=== PATIENT | male | born 1990 | race Caucasian/White ===

== ENCOUNTER 2018-01-17 20:38 | Observation (INO) | payer BC ==
[2018-01-17] MEDS ORDERED: HYDROmorphone 1 MG/ML 1 ML SYRINGE IVP STA ×2 (21:19→22:36)
--- NOTE | 2018-01-17 21:24 | ED ---
Abdominal Pain HPI <ShivamevelynNic - Last Filed: 01/17/18 22:37> - General Source: patient, EMS Mode of arrival: EMS Limitations: no limitations <Prema Gutiérrez - Last Filed: 01/18/18 03:42> - General Chief Complaint: Abdominal Pain Stated Complaint: Abdominal Pain Time Seen by Provider: 01/17/18 21:08 - History of Present Illness Initial Comments: 27-year-old male patient presents the emergency department today for transfer from [facility] for right lower quadrant abdominal pain and possible appendicitis. Patient states that he has been having right lower quadrant abdominal pain for the last 3 days. Patient states that the pain has been gradually worsening. Patient states that today he was unable to move without significant pain. Patient states he has been having some loose bowel movements with presence of red blood. Patient states he has had no appetite and has been nauseated. Has not vomited. Patient denies any fevers or chills. States he is urinating without difficulty. Patient has had cholecystectomy in the past but does still have his appendix. Patient is treated for chronic neck and back pain. Patient denies any recent rash, shortness breath, chest pain, back pain, numbness, tingling, dizziness, weakness, hematuria, dysuria, urinary urgency, urinary frequency, headache, visual changes, or any other complaints. (Prema Gutiérrez) - Related Data Home Medications Medication Instructions Recorded Confirmed Atorvastatin [Lipitor] 10 mg PO DAILY 01/17/18 01/17/18 Cholecalciferol [Vitamin D3] 1,000 unit PO DAILY 01/17/18 01/17/18 Cyanocobalamin [Vitamin B-12] 500 mcg PO DAILY 01/17/18 01/17/18 DULoxetine HCL [Cymbalta] 60 mg PO DAILY 01/17/18 01/17/18 Multivitamins, Thera [Multivitamin 1 tab PO DAILY 01/17/18 01/17/18 (formulary)] Niacin [Niacin ER] 500 mg PO DAILY 01/17/18 01/17/18 Pregabalin [Lyrica] 100 mg PO TID 01/17/18 01/17/18 tiZANidine [Zanaflex] 4 mg PO TID 01/17/18 01/17/18 Allergies Allergy/AdvReac Type Severity Reaction Status Date / Time morphine Allergy Severe cardiac Verified 01/18/18 01:44 arrest amoxicillin trihydrate Allergy Rash/Hives Verified 01/18/18 01:44 [From Trimox] Penicillins Allergy Rash/Hives Verified 01/18/18 01:44 Review of Systems ROS Other: All systems not noted in ROS Statement are negative. <Nic Whitaker - Last Filed: 01/17/18 22:37> ROS Other: All systems not noted in ROS Statement are negative. <BrockPrema Tay - Last Filed: 01/18/18 03:42> ROS Statement: Those systems with pertinent positive or pertinent negative responses have been documented in the HPI. Past Medical History Past Medical History: GERD/Reflux Additional Past Medical History / Comment(s): ABDOMINAL PAIN History of Any Multi-Drug Resistant Organisms: None Reported Past Surgical History: Cholecystectomy, Orthopedic Surgery Additional Past Surgical History / Comment(s): COLONOSCOPY, EGD, R ankle surgery , carpal devika right hand, Past Anesthesia/Blood Transfusion Reactions: No Reported Reaction Past Psychological History: No Psychological Hx Reported Smoking Status: Current every day smoker Past Alcohol Use History: None Reported Past Drug Use History: None Reported <Prema Gutiérrez - Last Filed: 01/18/18 03:42> General Exam Limitations: no limitations General appearance: alert, in no apparent distress, other (This is a well- developed, well-nourished adult male patient in no acute distress. Vital signs upon presentation To 96.7F, pulse 71, respirations 18, blood pressure 134/71, pulse ox 97% on room air.) Eye exam: Present: normal appearance, PERRL, EOMI. Absent: scleral icterus, conjunctival injection, periorbital swelling ENT exam: Present: normal exam, normal oropharynx, mucous membranes moist Respiratory exam: Present: normal lung sounds bilaterally. Absent: respiratory distress, wheezes, rales, rhonchi, stridor Cardiovascular Exam: Present: regular rate, normal rhythm, normal heart sounds. Absent: systolic murmur, diastolic murmur, rubs, gallop, clicks GI/Abdominal exam: Present: soft, tenderness (Right upper quadrant, right lower quadrant, superpubic tenderness.), guarding, normal bowel sounds. Absent: distended, rebound, rigid Neurological exam: Present: alert, oriented X3, CN II-XII intact Psychiatric exam: Present: normal affect, normal mood Skin exam: Present: warm, dry, intact, normal color. Absent: rash <Prema Gutiérrez - Last Filed: 01/18/18 03:42> Vital Signs 01/17/18 20:44 Temperature 96.7 F L Pulse Rate 71 Respiratory 18 Rate Blood Pressure 134/71 O2 Sat by Pulse 97 Oximetry Medical Decision Making <Nic Whitaker - Last Filed: 01/17/18 22:37> <Prema Gutiérrez - Last Filed: 01/18/18 03:42> - Medical Decision Making I saw this patient in conjunction with the nurse practitioner. I performed independent history and physical exam. Agree with case management. (Nic Whitaker) 27 year-old male patient presented to the emergency department at [place] for evaluation of right lower quadrant abdominal pain 3 days. Patient was transferred to our facility for further evaluation. Computed tomography scan was reviewed from [facility] did show a for possible fluid filled appendix with adjacent colitis to the cecum. Upon arrival here patient did have right lower quadrant, right upper quadrant, and suprapubic tenderness. Patient is afebrile. Vital signs stable. He did receive Levaquin and Flagyl at the sending facility. My attending Dr. Whitaker did see and evaluate the patient, did speak to Dr. Rader. We will withhold any further antibiotics. Pain and nausea management will be provided. Patient is aware of plan and is agreeable. (Prema Gutiérrez) Disposition <Nic Whitaker - Last Filed: 01/17/18 22:37> Decision to Admit Reason: Admit from EC Decision Date: 01/17/18 Decision Time: 22:59 <Prema Gutiérrez - Last Filed: 01/18/18 03:42> Clinical Impression: Right lower quadrant abdominal pain, Colitis Narrative: Possible appendicitis (Prema Gutiérrez) Disposition: ADMITTED IP TO THIS [facility] Condition: Serious
[2018-01-17] MEDS: SODIUM CHLORIDE 0.9% 1,000 ML IV SCH (21:37)
[2018-01-17] MEDS ORDERED: ONDANSETRON 4 MG/2 ML VIAL IVP PRN (22:59)
[2018-01-17] MEDS ORDERED: NALOXONE 0.4 MG/ML 1 ML VIAL IV PRN (22:59)
[2018-01-17] MEDS ORDERED: ACETAMINOPHEN TAB 325 MG TAB PO PRN (22:59)
[2018-01-18 00:06] VITALS: BMI 20.7
[2018-01-18] MEDS: HYDROmorphone 1 MG/ML 1 ML SYRINGE IVP PRN ×4 (02:04→15:50)
[2018-01-18 08:09] LABS: ALT 189 U/L (21-72); AST 269 U/L (17-59); Albumin 3.6 g/dL (3.5-5.0); Alkaline Phosphatase 103 U/L (38-126); Amylase 78 U/L (30-110); Anion Gap 4 mmol/L; Blood Urea Nitrogen 8 mg/dL (9-20); Calcium 9.1 mg/dL (8.4-10.2); Carbon Dioxide 30 mmol/L (22-30); Chloride 108 mmol/L (98-107); Glucose 94 mg/dL (74-99); Lipase 142 U/L (23-300); Potassium 4.8 mmol/L (3.5-5.1); Sodium 142 mmol/L (137-145); Total Bilirubin 1.4 mg/dL (0.2-1.3); Total Protein 6.1 g/dL (6.3-8.2)
[2018-01-18 08:11] LABS: Basophils % (A) 1 %; Eosinophils # (A) 0.1 k/uL (0-0.7); Eosinophils % (A) 2 %; HCT 42.3 % (39.0-53.0); Lymphocytes # (A) 1.3 k/uL (1.0-4.8); Lymphocytes % (A) 27 %; MCH 29.7 pg (25.0-35.0); MCHC 33.1 g/dL (31.0-37.0); MCV 89.7 fL (80.0-100.0); Mean Platelet Volume 7.6; Monocytes # (A) 0.4 k/uL (0-1.0); Monocytes % (A) 8 %; Neutrophils # (A) 2.9 k/uL (1.3-7.7); Neutrophils % (A) 60 %; Platelet Count 149 k/uL (150-450); RBC 4.72 m/uL (4.30-5.90); WBC 4.9 k/uL (3.8-10.6)
[2018-01-18] MEDS: SODIUM CHLORIDE 0.9% 1,000 ML IV SCH (11:21)
--- NOTE | 2018-01-18 11:22 | US ---
EXAMINATION TYPE: US gallbladder DATE OF EXAM: 01/18/2018 COMPARISON: Outside CT from yesterday. CLINICAL HISTORY: Elevated liver enzymes postcholecystectomy. Elevated liver enzymes EXAM MEASUREMENTS: Liver Length: 18.0 cm Gallbladder Wall: Surgically absent cm CBD: 0.3 cm Right Kidney: 10.9 x 3.5 x 4.4 cm Pancreas: wnl Liver: wnl Gallbladder: Surgically absent CBD: wnl Right Kidney: wnl IMPRESSION: No suspicious intrahepatic mass or intrahepatic ductal dilatation is seen on ultrasound i [facility]ages saved or patient's outside CT.
--- NOTE | 2018-01-18 14:30 | P.GSHP ---
History of Present Illness H&P Date: 01/18/18 Chief Complaint: Right-sided abdominal pain 27-year-old male presents to the ER yesterday with a 4 day history of abdominal pain. He apparently went to [facility]. A CAT scan of the abdomen performed without contrast apparently showed questionable distended appendix with possible colonic wall thickening at the cecum. The patient's appetite is diminished. Pain is right mid abdomen. He has had his gallbladder out. Some loose stools with rare episodes of rectal bleeding. He is afebrile. White blood cell count here is normal. Repeat labs here show elevation of his liver enzymes. - Review of Systems Comment: The patient denies any acute changes in vision or hearing, no dysphagia or odynophagia, no chest pain or shortness of breath, no dysuria or hematuria, no headache, no runny nose, no rectal bleeding or melena, no unexplained weight loss Past Medical History Past Medical History: GERD/Reflux Additional Past Medical History / Comment(s): ABDOMINAL PAIN History of Any Multi-Drug Resistant Organisms: None Reported Past Surgical History: Cholecystectomy, Orthopedic Surgery Additional Past Surgical History / Comment(s): COLONOSCOPY, EGD, R ankle surgery , carpal devika right hand, Past Anesthesia/Blood Transfusion Reactions: No Reported Reaction Past Psychological History: No Psychological Hx Reported Smoking Status: Current every day smoker Past Alcohol Use History: None Reported Past Drug Use History: None Reported Medications and Allergies Home Medications Medication Instructions Recorded Confirmed Type Atorvastatin [Lipitor] 10 mg PO DAILY 01/17/18 01/17/18 History Cholecalciferol [Vitamin D3] 1,000 unit PO DAILY 01/17/18 01/17/18 History Cyanocobalamin [Vitamin B-12] 500 mcg PO DAILY 01/17/18 01/17/18 History DULoxetine HCL [Cymbalta] 60 mg PO DAILY 01/17/18 01/17/18 History Multivitamins, Thera [Multivitamin 1 tab PO DAILY 01/17/18 01/17/18 History (formulary)] Niacin [Niacin ER] 500 mg PO DAILY 01/17/18 01/17/18 History Pregabalin [Lyrica] 100 mg PO TID 01/17/18 01/17/18 History tiZANidine [Zanaflex] 4 mg PO TID 01/17/18 01/17/18 History Allergies Allergy/AdvReac Type Severity Reaction Status Date / Time morphine Allergy Severe cardiac Verified 01/18/18 01:44 arrest amoxicillin trihydrate Allergy Rash/Hives Verified 01/18/18 01:44 [From Trimox] Penicillins Allergy Rash/Hives Verified 01/18/18 01:44 Surgical - Exam Vital Signs Temp Pulse Resp BP Pulse Ox 96.7 F L 71 18 134/71 97 01/17/18 20:44 01/17/18 20:44 01/17/18 20:44 01/17/18 20:44 01/17/18 20:44 Physical exam: General: Well-developed, well-nourished HEENT: Normocephalic, sclerae nonicteric Abdomen: Mild right-sided tenderness, nondistended Extremities: No edema Neuro: Alert and oriented Results - Labs 01/18/18 07:28 01/18/18 07:28 Abnormal Lab Results - Last 24 Hours (Table) 01/18/18 01/18/18 Range/Units 07:28 07:28 Plt Count 149 L (150-450) k/uL Chloride 108 H (98-107) mmol/L BUN 8 L (9-20) mg/dL Total Bilirubin 1.4 H (0.2-1.3) mg/dL AST 269 H (17-59) U/L ALT 189 H (21-72) U/L Total Protein 6.1 L (6.3-8.2) g/dL Diabetes panel 01/18/18 Range/Units 07:28 Sodium 142 (137-145) mmol/L Potassium 4.8 (3.5-5.1) mmol/L Chloride 108 H (98-107) mmol/L Carbon Dioxide 30 (22-30) mmol/L BUN 8 L (9-20) mg/dL Creatinine 0.89 (0.66-1.25) mg/dL Glucose 94 (74-99) mg/dL Calcium 9.1 (8.4-10.2) mg/dL AST 269 H (17-59) U/L ALT 189 H (21-72) U/L Alkaline Phosphatase 103 (38-126) U/L Total Protein 6.1 L (6.3-8.2) g/dL Albumin 3.6 (3.5-5.0) g/dL Calcium panel 01/18/18 Range/Units 07:28 Calcium 9.1 (8.4-10.2) mg/dL Albumin 3.6 (3.5-5.0) g/dL Pituitary panel 01/18/18 Range/Units 07:28 Sodium 142 (137-145) mmol/L Potassium 4.8 (3.5-5.1) mmol/L Chloride 108 H (98-107) mmol/L Carbon Dioxide 30 (22-30) mmol/L BUN 8 L (9-20) mg/dL Creatinine 0.89 (0.66-1.25) mg/dL Glucose 94 (74-99) mg/dL Calcium 9.1 (8.4-10.2) mg/dL Adrenal panel 01/18/18 Range/Units 07:28 Sodium 142 (137-145) mmol/L Potassium 4.8 (3.5-5.1) mmol/L Chloride 108 H (98-107) mmol/L Carbon Dioxide 30 (22-30) mmol/L BUN 8 L (9-20) mg/dL Creatinine 0.89 (0.66-1.25) mg/dL Glucose 94 (74-99) mg/dL Calcium 9.1 (8.4-10.2) mg/dL Total Bilirubin 1.4 H (0.2-1.3) mg/dL AST 269 H (17-59) U/L ALT 189 H (21-72) U/L Alkaline Phosphatase 103 (38-126) U/L Total Protein 6.1 L (6.3-8.2) g/dL Albumin 3.6 (3.5-5.0) g/dL Assessment and Plan (1) Elevated liver enzymes Narrative/Plan: CAT scan reviewed. A short normal-appearing appendix is thought to be visualized. I do not appreciate any bowel wall thickening. There are no significant inflammatory changes in the right lower quadrant. The films were also reviewed with our radiologist in-house. He agrees with my assessment. The patient's liver enzyme elevation points to a potential hepatic source of discomfort. We'll check abdominal ultrasound. We'll consult GI. Current Visit: Yes Status: Acute Code(s): R74.8 - ABNORMAL LEVELS OF OTHER SERUM ENZYMES SNOMED Code(s): 593615525
[2018-01-18 14:59] VITALS: BP 110/69; PULSE 67; RESP 16; TEMP 98.8
--- NOTE | 2018-01-18 17:59 | P.DS ---
Providers Date of admission: 01/17/18 23:07 Expected date of discharge: 01/18/18 Attending physician: Saad Rader Consults: 01/18/18 09:57 Consult Physician Routine Consulting Provider: David Lira Consult Reason/Comments: Elevated liver enzymes post cholecystectomy Do you want consulting provider notified?: Yes Primary care physician: Cr Em Franco - Discharge Diagnosis(es) (1) Elevated liver enzymes Patient admitted for possible appendicitis. CAT scan was reviewed and appears fairly normal. Patient's liver enzymes are elevated. His pain he says it has resolved. He is quite anxious to go home at this time. We'll plan discharge this evening with plans for outpatient follow-up with GI and his primary care physician. He was asked to return to the emergency department if his pain recurred. Current Visit: Yes Status: Acute Patient Condition at Discharge: Serious Plan - Discharge Summary New Discharge Prescriptions: No Action Multivitamins, Thera [Multivitamin (formulary)] 1 tab PO DAILY Cyanocobalamin [Vitamin B-12] 500 mcg PO DAILY Cholecalciferol [Vitamin D3] 1,000 unit PO DAILY tiZANidine [Zanaflex] 4 mg PO TID Pregabalin [Lyrica] 100 mg PO TID Niacin [Niacin ER] 500 mg PO DAILY DULoxetine HCL [Cymbalta] 60 mg PO DAILY Atorvastatin [Lipitor] 10 mg PO DAILY Discharge Medication List Atorvastatin [Lipitor] 10 mg PO DAILY 01/17/18 [History] Cholecalciferol [Vitamin D3] 1,000 unit PO DAILY 01/17/18 [History] Cyanocobalamin [Vitamin B-12] 500 mcg PO DAILY 01/17/18 [History] DULoxetine HCL [Cymbalta] 60 mg PO DAILY 01/17/18 [History] Multivitamins, Thera [Multivitamin (formulary)] 1 tab PO DAILY 01/17/18 [History ] Niacin [Niacin ER] 500 mg PO DAILY 01/17/18 [History] Pregabalin [Lyrica] 100 mg PO TID 01/17/18 [History] tiZANidine [Zanaflex] 4 mg PO TID 01/17/18 [History] Follow up Appointment(s)/Referral(s): Cr Franco MD [Primary Care Provider] - 01/22/18 10:00 am David Lira MD [STAFF PHYSICIAN] - 1 Week (Office currently closed, please call for appointment. ) Activity/Diet/Wound Care/Special Instructions: Low fat diet. Activity as tolerated.
[2018-01-18] MEDS ORDERED: PANTOPRAZOLE SODIUM 40 MG GRANULE PKT PO SCH (18:30)
--- NOTE | 2018-01-18 18:49 | P.CONS ---
History of Present Illness - Reason for Consult Consult date: 01/18/18 Elevated LFT's Requesting physician: Saad Rader - Chief Complaint Abdominal pain - History of Present Illness The patient is a 27 yo male with a medical history significant for dyslipidemia and prior history PUD secondary to NSAID use who presented with complaints of abdominal pain as a transfer an OSH. The patient reports sharp, stabbing abdominal pain in the right lower quadrant. The pain was waxing and waning in intensity. CT scan report sent with the patient reported inflammation in the right lower quadrant in the area of the cecum that could represent appendicitis. The patient also had elevation of the LFT's with a Tbili 1.4, AP 103, AST 269 and ALT 189. The patient denies any increased frequency of his BM' s but does report 4 days of loos stool. No association of his BM's with food, and no unusual food or sick contacts. The patient is on multiple medications which are related to elevation in LFT's including Lipitor, Cymbalta, Lyrica and Niacin. He says Niacin was recently started within the last few months. In addition he takes Tylenol almost daily but denies any abuse of the medicaiton. He denies hepatitis of excessive alcohol use. Review of Systems Constitutional: Denies fatigue, Denies sweats, Denies weight gain, Denies weight loss Eyes: denies blurred vision, denies bulging eye Ears: deny: decreased hearing Ears, nose, mouth and throat: Denies epistaxis, Denies hoarseness, Denies neck lump, Denies odynophagia Cardiovascular: Denies chest pain, Denies edema, Denies irregular heart beat, Denies leg edema Respiratory: Denies congestion, Denies cough, Denies excessive sputum Gastrointestinal: Denies bloating, Denies excessive gas, Denies heartburn, Denies nausea Genitourinary: Denies dysuria, Denies incontinence Integumentary: Denies boils, Denies color changes, Denies darkening of skin, Denies sores Neurological: Denies aphasia, Denies balance difficulties, Denies gait dysfunction Endocrine: Denies fatigue, Denies flushing, Denies palpitations Past Medical History Past Medical History: GERD/Reflux Additional Past Medical History / Comment(s): ABDOMINAL PAIN History of Any Multi-Drug Resistant Organisms: None Reported Past Surgical History: Cholecystectomy, Orthopedic Surgery Additional Past Surgical History / Comment(s): COLONOSCOPY, EGD, R ankle surgery , carpal devika right hand, Past Anesthesia/Blood Transfusion Reactions: No Reported Reaction Past Psychological History: No Psychological Hx Reported Smoking Status: Current every day smoker Past Alcohol Use History: None Reported Past Drug Use History: None Reported Medications and Allergies Home Medications Medication Instructions Recorded Confirmed Type Atorvastatin [Lipitor] 10 mg PO DAILY 01/17/18 01/17/18 History Cholecalciferol [Vitamin D3] 1,000 unit PO DAILY 01/17/18 01/17/18 History Cyanocobalamin [Vitamin B-12] 500 mcg PO DAILY 01/17/18 01/17/18 History DULoxetine HCL [Cymbalta] 60 mg PO DAILY 01/17/18 01/17/18 History Multivitamins, Thera [Multivitamin 1 tab PO DAILY 01/17/18 01/17/18 History (formulary)] Niacin [Niacin ER] 500 mg PO DAILY 01/17/18 01/17/18 History Pregabalin [Lyrica] 100 mg PO TID 01/17/18 01/17/18 History tiZANidine [Zanaflex] 4 mg PO TID 01/17/18 01/17/18 History Allergies Allergy/AdvReac Type Severity Reaction Status Date / Time morphine Allergy Severe cardiac Verified 01/18/18 01:44 arrest amoxicillin trihydrate Allergy Rash/Hives Verified 01/18/18 01:44 [From Trimox] Penicillins Allergy Rash/Hives Verified 01/18/18 01:44 Physical Exam Vitals: Vital Signs Temp Pulse Pulse Resp BP BP Pulse Ox 01/18/18 15:29 16 01/18/18 14:58 98.8 F 67 16 110/69 100 01/18/18 05:56 97.8 F 78 18 106/70 98 01/17/18 23:56 98.4 F 73 18 124/80 98 01/17/18 20:44 96.7 F L 71 18 134/71 97 Intake and Output 01/18/18 01/18/18 01/18/18 06:59 14:59 22:59 Other: Voiding Method Toilet # Voids 2 3 Weight 63.503 kg - Constitutional General appearance: average body habitus, cooperative, no acute distress - EENT Eyes: no edentulous, no scleral icterus ENT: hard of hearing, no thrush - Neck Neck: normal ROM ( ) - Respiratory Respiratory: bilateral: CTA, negative: rhonchi, wheezing - Cardiovascular Rhythm: regular Heart sounds: normal: S1, S2 - Gastrointestinal General gastrointestinal: no distended, normal bowel sounds, no organomegaly, no rigid Localized gastrointestinal: tender: RLQ - Integumentary Integumentary: no calor, no flushed, no jaundiced - Musculoskeletal Musculoskeletal: no gait normal, no generalized weakness Results CBC & Chem 7: 01/18/18 07:28 01/18/18 07:28 Labs: Abnormal Lab Results - Last 24 Hours (Table) 01/18/18 01/18/18 Range/Units 07: 07:28 Plt Count 149 L (150-450) k/uL Chloride 108 H (98-107) mmol/L BUN 8 L (9-20) mg/dL Total Bilirubin 1.4 H (0.2-1.3) mg/dL AST 269 H (17-59) U/L ALT 189 H (21-72) U/L Total Protein 6.1 L (6.3-8.2) g/dL CT scan - abdomen: report reviewed (CT scan from outside hospital noting inflammation in cecal colon suggestive of appendicitis.) Assessment and Plan (1) Colitis Narrative/Plan: Unclear etiology, would doubt ischemic given the patient lack of CAD or atherosclerotic disease and denial of hematochezia. IBD is less likely given acuity of symptoms. Likely represents infectious process. Current Visit: Yes Status: Acute Code(s): K52.9 - NONINFECTIVE GASTROENTERITIS AND COLITIS, UNSPECIFIED SNOMED Code(s): 99735611 (2) Elevated liver enzymes Narrative/Plan: Cholestatic and hepatocellular, in the setting of multiple medications associated with elevation in liver enzymes suspicion is for medication effect. Patient and family informed that given the temporal relationship with Niacin therapy this is likely the culprit. Close monitoring will be needed of LFT's, INR and for signs and symptoms of liver injury. If patient is unwilling to stay at the hospital will need close outpatient follow up. His and other family members, as well as the patient agree. In addition full liver serologies ordered. Current Visit: Yes Status: Acute Code(s): R74.8 - ABNORMAL LEVELS OF OTHER SERUM ENZYMES SNOMED Code(s): 802969291 (3) Right lower quadrant abdominal pain Narrative/Plan: Secondary to above. Current Visit: Yes Status: Acute Code(s): R10.31 - RIGHT LOWER QUADRANT PAIN SNOMED Code(s): 285990767 Plan: Supportive care Okay for diet Would stop Niacin, and consider holding other meds if LFT's do not trend down. Full serologic workup ordered for elevated liver enzymes Patient will need close monitoring of LFTs, INR and for signs and symptoms of lfurther liver injury while in hospital or in the outpatient setting if he is unwilling to stay for further evaluation. Avoid hepatotoxic meds Stool studies to rule out infection Patient has had endoscopic evaluation with EGD and colonoscopy in the past Reccomend PPI therapy daily given NSAID use, and avoidance of NSAIDs if possible
[2018-01-18 19:05] LABS: Iron Saturation 47.71 (15.00-50.00); Protein, Total 6.2 g/dL (6.2-8.2)
[2018-01-18 19:41] LABS: Hepatitis A Antibody IgM Non-Reactive (Non-Reactive); Hepatitis B Core IgM Non-Reactive (Non-Reactive)
[2018-01-19 12:27] LABS: Ceruloplasmin 24.9 mg/dL (20.0-60.0)
[2018-01-21 15:29] LABS: Albumin 3.87 g/dL (3.80-4.90); Gamma Globulin 0.76 g/dL (0.70-1.50)
== END 2018-01-18 19:41 | disposition home or self-care (01) ==
LOC: EC 20:38 → 4MS4W 23:07
PROVIDERS: ADMIT Surgery; ATTEND Surgery
DX: R74.8 Abnormal levels of other serum enzymes (principal); K52.9 Noninfective gastroenteritis and colitis, unspecified; G89.29 Other chronic pain; M54.2 Cervicalgia; M54.9 Dorsalgia, unspecified; Z90.49 Acquired absence of other specified parts of digestive tract; K62.5 Hemorrhage of anus and rectum; E78.5 Hyperlipidemia, unspecified; K21.9 Gastro-esophageal reflux disease without esophagitis; F17.200 Nicotine dependence, unspecified, uncomplicated; Z79.899 Other long term (current) drug therapy; Z88.5 Allergy status to narcotic agent; Z88.0 Allergy status to penicillin; Z87.11 Personal history of peptic ulcer disease
CPT/HCPCS: 99285 ×2; 96374 ×2; 96376 ×3; 96361; 86376; 80053; 80074; 82728; 82150; 83540; 83550; 83690; 85025; 83516 ×2; 82103; 84165; 82390; 86038; 76705; G0378 ×2; J1170 ×2

== ENCOUNTER 2018-03-14 09:23 | Day surgery (SDC) | payer BC, OTHER ==
[2018-03-11 14:23] VITALS: BMI 22.8
[~2018-03-14 09:23] MED LIST: LACTATED RINGERS 1,000 ML IV SCH
[2018-03-14 09:54] VITALS: RESP 16; TEMP 98.4
[2018-03-14] MEDS ORDERED: LIDOCAINE 1% 20 ML VIAL (10MG/ML) FOR IV START INTRADERMA ONE (10:00)
[2018-03-14] MEDS ORDERED: MIDAZOLAM 2 MG/2 ML VIAL IVP ONE (11:27)
[2018-03-14] MEDS ORDERED: LIDOCAINE 1% INJ 10MG/ML (20 ML MDV) ONE (12:15)
[2018-03-14] MEDS ORDERED: PROPOFOL 10 MG/ML 20 ML VIAL IV ONE (12:15)
--- NOTE | 2018-03-14 12:52 | P.PCN ---
Date of Procedure: 03/14/18 Description of Procedure: BRIEF HISTORY: Patient is a 28-year-old pleasant male who is here for colonoscopic evaluation after recent hospitalization for which the patient was evaluated for abdominal pain with CT findings suggestive of possible inflammation in the right lower quadrant of the abdomen. The imaging was reviewed by radiologist at [facility] who did not feel that the inflammation was true and patient's symptoms improved. He subsequently had repeat CT imaging which was negative. The patient continues to have loose bowel movements and right lower quadrant abdominal pain. He is had minimal relief with antispasmodic medications. PROCEDURE PERFORMED: Colonoscopy with biopsy. PREOPERATIVE DIAGNOSIS: Change in bowel habits, diarrhea, abnormal CT imaging, right lower quadrant abdominal pain. ESTIMATED BLOOD LOSS: Minimal. IV sedation per Anesthesia. PROCEDURE: After informed consent was obtained, the patient, was brought into the endoscopy unit. IV sedation was administered by Anesthesia under continuous monitoring. Digital rectal examination was normal. Initially the Olympus CF- 190 flexible video colonoscope was then inserted in the rectum, gradually advanced into the cecum without any difficulty. Careful examination was performed as the scope was gradually being withdrawn. Ileocecal valve and the appendiceal orifice were visualized and appeared normal. Prep was good. Mucosa of the cecum, ascending colon, transverse colon, descending colon, sigmoid colon , and rectum appeared normal, with random biopsies taken in the right colon, transverse colon and left colon. Retroflexion was performed in the rectum and no lesions were seen, with mild internal hemorrhoids noted. The patient tolerated the procedure well. IMPRESSION: Normal-appearing colon from rectum to cecum, with random biopsies taken throughout the colon in the setting of altered bowel habits. Mild internal hemorrhoids on retroflexion and rectum. RECOMMENDATIONS: Findings of this examination were discussed with the patient and his . Okay to resume diet. Await pathology from biopsies. Follow up with gastroenterology clinic as previously scheduled.
[2018-03-14 13:32] VITALS: BP 127/80; PULSE 70
== END 2018-03-14 13:45 | disposition home or self-care (01) ==
LOC: ORWHC2ENDO 09:23
PROVIDERS: ATTEND Internal Medicine
DX: K64.8 Other hemorrhoids (principal); R19.7 Diarrhea, unspecified; R93.5 Abnormal findings on diagnostic imaging of other abdominal regions, including retroperitoneum; R10.31 Right lower quadrant pain; M54.5 Low back pain; F17.210 Nicotine dependence, cigarettes, uncomplicated; Z79.899 Other long term (current) drug therapy; Z90.49 Acquired absence of other specified parts of digestive tract; Z88.5 Allergy status to narcotic agent; Z88.0 Allergy status to penicillin
CPT/HCPCS: 88305; 45380; J2250; J2001; J2704